=== PATIENT | female | born 1990 | race Caucasian/White ===

== ENCOUNTER 2024-05-28 03:30 | Emergency (ER) | payer MEDICAID ==
[2024-05-28] MEDS: Albuterol/Ipratropium 3.0-0.5 MG/3 ML Neb Soln NEB ONE (04:23)
== END 2024-05-28 04:35 | disposition home or self-care (01) ==
LOC: JP.ED 03:30
DX: J06.9 Acute upper respiratory infection, unspecified (principal); F17.210 Nicotine dependence, cigarettes, uncomplicated; Z91.013 Allergy to seafood; Z79.899 Other long term (current) drug therapy
CPT/HCPCS: 94640; 99283; 99284; A9270-GY